=== PATIENT | male | born 1970 | race African-American/Black ===

== ENCOUNTER 2017-12-10 13:20 | Outpatient (CLI) | payer MEDICARE, MEDICAID ==
--- NOTE | 2017-12-10 14:42 | MRI ---
MRI LUMBAR SPINE WITHOUT CONTRAST: DATE: 12/10/17. COMPARISON: 09/21/16. HISTORY: Lumbar radiculopathy, bilateral lower extremity weakness. TECHNIQUE: Multiplanar, multisequence MR imaging of the lumbar spine provided without contrast. FINDINGS: The sagittal STIR imaging demonstrates degenerative edematous end plate change at the L5-S1 level, si milar when compared to prior imaging. Stable hemangioma of L5 vertebral body noted. Assuming 5 lumbar-type vertebral bodies, conus medullaris terminates at L1-2 level. T12-L1: There is mild bilateral facet hypertrophy. There is intervertebral disk space narrowing wit h no significant central canal or neural foraminal stenosis. L1-2: Moderate bilateral facet hypertrophy. Intervertebral disk height and signal intensity is withi n normal limits with no significant central canal or neural foraminal stenosis. L2-3: There is moderate bilateral facet hypertrophy. Intervertebral disk height and signal intensit y is within normal limits with no significant central canal or neural foraminal stenosis. L3-4: Bilateral facet hypertrophy. Intervertebral disk height and signal intensity is within normal limits. Mild bilateral neural foraminal stenosis. No significant central canal stenosis. L4-5: Disk space narrowing, disk desiccation, and disk bulge present. Central annular tear noted. Prominent bilateral facet hypertrophy. No significant central canal stenosis. Stable severe bilateral neural foraminal stenosis. L5-S1: Significant bilateral facet hypertrophy present. There is disk space narrowing, disk desicca tion, mild disk bulge, and vacuum disk formation. Stable mild central canal stenosis. Stable severe bilateral neural foraminal stenosis. Imaged retroperitoneal structures demonstrate no acute findings. IMPRESSION: Stable lower lumbar spine degenerative disk disease with severe neural foraminal stenosis bilaterally at L4-5 and L5-S1. POS: [facility]
== END 2017-12-10 13:21 | disposition home or self-care (01) ==
LOC: TBSIIMAG 13:20
PROVIDERS: ATTEND Neurological Surgery
DX: M51.16 Intervertebral disc disorders with radiculopathy, lumbar region (principal); M99.83 Other biomechanical lesions of lumbar region
CPT/HCPCS: 72148

== ENCOUNTER 2018-01-18 11:15 | Inpatient (IN) | payer MEDICARE, MEDICAID ==
[2018-01-18 15:11] VITALS: BMI 31.1
[2018-01-24] MEDS ORDERED: Sodium Chloride 0.9% 10 ML ONE (07:04)
[2018-01-24] MEDS ORDERED: CEFAZOLIN/Water 2 GM/20 ML SYRINGE ONE (07:42)
[2018-01-24] MEDS ORDERED: Fentanyl 100 MCG/2 ML VIAL ONE ×2 (08:54→11:51)
[2018-01-24] MEDS ORDERED: Midazolam HCl 2 mg/2 ml Vial ONE (08:54)
[2018-01-24] MEDS ORDERED: Lidocaine 2% Jelly 5 ML TUBE ONE (08:54)
[2018-01-24] MEDS ORDERED: PHENYLEPHRINE-NS 100 MCG/ML 10 ML SYRINGE ONE ×2 (10:05→13:35)
--- NOTE | 2018-01-24 11:09 | OP ---
DATE OF PROCEDURE: 01/24/2018 SURGEON: Norm Burns M.D. CARDIOLOGY RN: Liudmila Cartwright PROCEDURES: Right L4-5 and L5-S1 laminectomy, facetectomy, foraminotomy, interbody arthrodesis, intr avertebral biomechanical device, local morselized autograft, demineralized bone matrix, posterolatera l arthrodesis and pedicle screw instrumentation L4-5 and L5-S1. PROCEDURE IN DETAIL: The patient was brought to the operating room, intubated. He was rolled in the prone position on gel-filled chest rolls. Incision made exposing L4 through S1 and our level was co nfirmed by x-ray. We performed a right L4-L5 laminectomy, facetectomy, and foraminotomy and similarl y at L5-S1 decompressing neural elements at both levels. The disc was incised and debrided and compl etely removed. The bony endplates were decorticated for the purpose of arthrodesis and appropriately sized intravertebral biomechanical PEEK device was brought into the field, filled with demineralized bone matrix and local morselized autograft, and tapped into place securely at L4-5 and L5-S1. Next, pedicle screws were placed at right L4, right L5 and right S1 using lateral fluoroscopic guidance an d positioning was confirmed with rotational x-ray. Duong was secured between the screws, connected by nuts which were final tightened. The wound was then extensively irrigated and immaculate hemostasis was secured. A combination of demineralized bone matrix and local morselized autograft was laid over the left laminar and posterolateral surfaces for the purpose of arthrodesis. Vancomycin powder was applied and the wound was then closed in anatomic layers over a drain.
[2018-01-24] MEDS ORDERED: Ondansetron HCl/PF 4 MG/2 ML Vial IVP PRN (11:20)
[2018-01-24] MEDS ORDERED: Promethazine HCl 25 MG/ML VIAL IM PRN ×2 (11:20→11:59)
[2018-01-24] MEDS ORDERED: Promethazine HCl 25 MG/ML VIAL SLOW IVP PRN (11:20)
[2018-01-24] MEDS ORDERED: HYDROcodone/Acetaminophen 10/325 mg Tablet PO PRN ×4 (11:55→14:09)
[2018-01-24] MEDS ORDERED: clonazePAM 1 MG TAB PO PRN ×3 (11:58→14:09)
[2018-01-24] MEDS ORDERED: Promethazine HCl 12.5 MG SUPP PR PRN (11:59)
[2018-01-24] MEDS ORDERED: tiZANidine HCl 4 MG TAB PO PRN (11:59)
[2018-01-24] MEDS ORDERED: Mag-Al 1200 mg/1200 mg/30 ML UDCUP PO PRN (11:59)
[2018-01-24] MEDS ORDERED: diphenhydrAMINE 50 MG/ML VIAL IVP PRN (11:59)
[2018-01-24] MEDS ORDERED: Promethazine 25 MG TAB PO PRN (11:59)
[2018-01-24] MEDS ORDERED: Milk Of Magnesia 30 ML UDCUP PO PRN (11:59)
[2018-01-24] MEDS ORDERED: traMADol HCl 50 MG TAB PO PRN ×2 (11:59)
[2018-01-24] MEDS ORDERED: diphenhydrAMINE 25 MG CAP PO PRN (11:59)
[2018-01-24] MEDS ORDERED: Morphine 4 MG/ML VIAL IV PRN (12:01)
[2018-01-24] MEDS ORDERED: Ondansetron PF 4 MG/2 ML Vial IM PRN (12:02)
[2018-01-24] MEDS: Sodium Chloride 0.9% 1,000 ML IV SCH (12:30)
[2018-01-24] MEDS ORDERED: Lidocaine 1% PF 5 ML VIAL ONE (13:35)
[2018-01-24] MEDS ORDERED: Glycopyrrolate 0.2 MG/ML 5 ML SYRINGE ONE (13:35)
[2018-01-24] MEDS ORDERED: PROPOFOL 200 MG/20 ML VIAL ONE (13:35)
[2018-01-24] MEDS ORDERED: ePHEDrine/0.9% NaCl/PF SYRINGE 50 mg/10 ml ONE (13:35)
[2018-01-24] MEDS ORDERED: Dexamethasone 20 MG/5 ML VIAL ONE (13:35)
[2018-01-24] MEDS ORDERED: Ondansetron PF 4 MG/2 ML Vial ONE (13:35)
[2018-01-24] MEDS ORDERED: hydrALAZINE 20 MG/ML VIAL SLOW IVP PRN (14:36)
[2018-01-24] MEDS ORDERED: Loratadine 10 MG TAB PO PRN (14:36)
[2018-01-24] MEDS ORDERED: Senokot 8.6 MG TAB PO PRN (14:36)
[2018-01-24] MEDS ORDERED: Famotidine 20 MG TAB PO PRN (14:36)
[2018-01-24] MEDS ORDERED: Eucerin (Mineral Oil/Petrolatum,White) 30 gm Jar TOP PRN (14:36)
[2018-01-24] MEDS ORDERED: Diabetic Tussin 200 MG/10 ML UDCUP PO PRN (14:36)
[2018-01-24] MEDS ORDERED: Artificial Tears 18 DROP/0.9 ML EA EYE PRN (14:36)
[2018-01-24] MEDS ORDERED: Acetaminophen 325 MG TAB PO PRN (14:36)
[2018-01-24] MEDS ORDERED: Ondansetron ODT 4 MG TAB PO PRN (14:36)
[2018-01-24] MEDS ORDERED: Loperamide HCl 2 MG CAP PO PRN (14:36)
[2018-01-24] MEDS ORDERED: Bisacodyl 10 MG SUPP PR PRN (14:36)
[2018-01-24] MEDS ORDERED: Chloraseptic Spray 180 ml Bottle PO PRN (14:36)
[2018-01-24] MEDS ORDERED: Temazepam 15 MG CAP PO PRN (14:36)
[2018-01-24] MEDS ORDERED: Sodium Chloride 0.65% Nasal 44 ML BOT EA NARE PRN (14:36)
--- NOTE | 2018-01-24 15:45 | CON ---
DATE OF CONSULTATION: 01/24/2018 PRIMARY CARE PHYSICIAN: Dr. Emily Grant. PRIMARY ATTENDING: Norm Burns M.D. REASON FOR ADMISSION: Lumbar diskectomy with fusion. REASON FOR CONSULT: Medical comanagement. HISTORY OF PRESENT ILLNESS: A 47-year-old -[place] male who has history of hemorrhagic stroke, required craniotomy, subsequently cranioplasty and he has residual hemiparesis and spasticity on the left side and he has left- sided hemineglect. For the last several months, patient was experiencing radicular pain in his left leg. The patient also had several epidural steroid injections without any significant relief. Patient also had nerve block, that also not subsided his pain completely. Patient had recently MRI of lumbar spine which showed degenerative disk disease in lumbar spine with severe neural foraminal stenosis at L4-L5 and L5-S1. Today, patient underwent right L4-L5, L5 -S1 laminectomy, fasciectomy, foraminotomy and postoperatively at joint floor, we were consulted for medical comanagement. Patient denies any chest pain, palpitation, shortness of breath. He has currently back pain after surgery. He denies any UTI symptoms. He denies any constipation, diarrhea, melena or hematochezia. PAST MEDICAL HISTORY: Paroxysmal atrial fibrillation, hypertension, chronic diastolic heart failure, history of hemorrhagic stroke with residual left-sided hemiplegia, hemineglect, diabetes type 2 which is diet controlled. PAST PSYCHIATRIC HISTORY: Anxiety and depression. PAST SURGICAL HISTORY: Craniotomy, cranioplasty, tracheostomy, hernia repair, lap banding. CURRENT HOME MEDICATIONS: Amlodipine 2.5 mg p.o. at bedtime, aspirin 81 mg p.o. daily, Coreg 25 mg p.o. b.i.d., vitamin D3 2000 units p.o. daily, clonazepam 1 or 2 tablets p.o. q.6 hourly p.r.n., Prozac 80 mg p.o. at bedtime, Lasix 20 mg p.o. daily, gabapentin 300 mg p.o. b.i.d., [place] 1 or 2 tablets q.6 hourly p.r.n., Imdur 60 mg p.o. b.i.d., lisinopril 40 mg p.o. b.i.d., fish oil 1 capsule p.o. daily, potassium chloride 20 mEq p.o. b.i.d., pravastatin 80 mg p.o. at bedtime. ALLERGIES: CYMBALTA. FAMILY HISTORY: Both parents . Father had diabetes and mother had bone cancer. SOCIAL HISTORY: Patient smokes cigar daily basis. He drinks alcohol occasionally. He is on disability. He is single. REVIEW OF SYSTEMS: The following complete review of systems was negative, unless otherwise mentioned in the HPI or below: Constitutional: Weight loss or gain, ability to conduct usual activities. Skin: Rash, itching. Eyes: Double vision, pain. ENT/Mouth: Nose bleeding, neck stiffness, pain, tenderness. Cardiovascular: Palpitations, dyspnea on exertion, orthopnea. Respiratory: Shortness of breath, wheezing, cough, hemoptysis, fever or night sweats. Gastrointestinal: Poor appetite, abdominal pain, heartburn, nausea, vomiting, constipation, or diarrhea. Genitourinary: Urgency, frequency, dysuria, nocturia. Musculoskeletal: Pain, swelling. Neurologic/Psychiatric: Anxiety, depression. Allergy/Immunologic: Skin rash, bleeding tendency. Please see my HPI for pertinent positive and negative. All other review of systems reviewed and negative except as mentioned in the HPI. PHYSICAL EXAMINATION: VITAL SIGNS: Currently, blood pressure 127/64, pulse 82, respiratory rate 18, temperature 97.6, saturation 100% on room air, and weight 230 pounds. GENERAL: Patient is currently alert, awake, no obvious acute distress. HEAD: The patient does have scar of craniotomy and cranioplasty. EYES: Pupils round and reactive to light. Extraocular muscle intact. No nystagmus. He has hemineglect on the left side. HEENT: Oropharynx within normal limits. Moist mucous membranes. No oral lesion. No pharyngeal erythema, no exudate. NECK: Supple, no JVD, no thyromegaly, no carotid bruit. LUNGS: Clear to auscultation without any rhonchi or rales. CARDIAC: S1 and S2 regular without any significant murmur. ABDOMEN: Soft, obesity present. Bowel sounds present, nontender, nondistended. No organomegaly, no mass, no suprapubic tenderness. BACK: The patient does have surgical site covered with dressing. NEUROLOGIC: The patient does have residual weakness on the left side with hemineglect, but no new focal neurological symptoms noted. PSYCHIATRIC: Normal affect. IMAGING DATA AND SIGNIFICANT LABORATORY DATA: 1. Lumbar spine MRI showed degenerative spine disease with severe neural foraminal stenosis bilaterally at L4-L5 and L5-S1. 2. CBC: WBC 4.4, hemoglobin 16.5, platelet 140. 3. BMP: Sodium 137, potassium 3.5, chloride 106, carbon dioxide 25, anion gap 10, BUN 16, creatinine 1.44, glucose 79, and calcium 9.1. 4. EKG reported as right bundle branch block pattern, left axis deviation, atrial fibrillation. ASSESSMENT AND PLAN/IMPRESSION: 1. Status post right L4-L5, L5-S1 laminectomy, fasciectomy, and foraminectomy. Management will defer to primary team. Patient will need physical therapy, occupational therapy, and possible rehab evaluation, pain control with different pain medication. 2. Paroxysmal atrial fibrillation, not a candidate for long-term chronic anticoagulation therapy because of history of hemorrhagic stroke. Currently rate controlled and in sinus rhythm. 3. Hypertension, currently well controlled. We will resume amlodipine 2.5 mg p.o. at bedtime, Coreg 25 mg p.o. b.i.d., Imdur 60 mg p.o. b.i.d., lisinopril 40 mg p.o. b.i.d., Lasix 20 mg p.o. daily. We will hold his blood pressure medication if blood pressure is less than 130 systolic. 4. Chronic diastolic heart failure, currently euvolemic. Continue Lasix, lisinopril, Coreg, Imdur, lisinopril as well as amlodipine as per home dosage as mentioned above. 5. Lumbar stenosis, status post laminectomy and foraminectomy. 6. Dyslipidemia. Continue pravastatin 80 mg p.o. at bedtime. 7. Anxiety and depression. Continue clonazepam one tablet q.6 hourly p.r.n. and fluoxetine 80 mg p.o. at bedtime. 8. Obesity with body mass index 31. Dietary education given. 9. Deep venous thrombosis prophylaxis. Sequential compression device boots. No Lovenox because of back surgery. 10. Gastrointestinal prophylaxis, Pepcid 20 mg p.o. b.i.d. 11. Code status: The patient is FULL CODE. The patient is making decision by himself. Disposition plan based on clinical course. Thank you for consult. We will follow up with you while in hospital. [place]
[2018-01-24] MEDS: CEFAZOLIN/Water 2 GM/20 ML SYRINGE SLOW IVP SCH (16:45)
[2018-01-24] MEDS: Potassium Chloride 20 MEQ TAB PO SCH ×2 (16:46→21:48)
[2018-01-24] MEDS: HYDROcodone/Acetaminophen 10/325 mg Tablet PO PRN (19:34)
[2018-01-24] MEDS ORDERED: Non-Formulary Item 1 EACH (Amlodipine Besylate [Amlodipine Besylate] 2.5 MG) PO SCH (21:00)
[2018-01-24] MEDS ORDERED: Non-Formulary Item 1 EACH (Lisinopril [Lisinopril] 1 TAB) PO SCH (21:00)
[2018-01-24] MEDS ORDERED: Atorvastatin Calcium 20 MG TAB PO SCH (21:00)
[2018-01-24] MEDS ORDERED: FLUOXETINE HCL 80 MG PO SCH (21:00)
[2018-01-24] MEDS ORDERED: Gabapentin 300 MG CAP PO SCH (21:00)
[2018-01-24] MEDS: Amlodipine 5 MG TAB PO SCH (21:46)
[2018-01-24] MEDS: Atorvastatin Calcium 20 MG TAB PO SCH (21:46)
[2018-01-24] MEDS: Carvedilol 25 MG TAB PO SCH ×2 (21:47)
[2018-01-24] MEDS: FLUoxetine HCl 20 MG CAP PO SCH (21:47)
[2018-01-24] MEDS: Gabapentin 300 MG CAP PO SCH (21:47)
[2018-01-24] MEDS: Lisinopril 20 MG TAB PO SCH (21:48)
[2018-01-25] MEDS: CEFAZOLIN/Water 2 GM/20 ML SYRINGE SLOW IVP SCH
[2018-01-25] MEDS: Sodium Chloride 0.9% 1,000 ML IV SCH ×2 (02:30→17:23)
--- NOTE | 2018-01-25 06:45 | PRG ---
DATE OF SERVICE: 01/25/2018 The patient is a 47-year-old male known to us for history of head injury with a cran iotomy with a later cranioplasty who has a left-sided hemiplegia and is wheelchair bound, who was see n in the office for progressively worsening low back and left hip pain. His MRI showed severe L4-L5 and L5-S1 degenerative changes and therefore, he underwent L4-S1 diskectomy and fusion on 01/24/2018. There were no complications during his surgery. KAREN drain was placed intraoperatively which had 70 mL of output overnight. This was removed the following morning and his IV antibiotics were discontin ued. His postoperative course has been complicated by some urinary retention. Overnight, the patien t was unable to urinate and a bladder scan revealed greater than 300 mL, therefore, I&O cath x1 was d one. I am assessing the patient this morning, he is still not able to urinate on his own. He will b e given 0.4 mg of Flomax this morning and I have ordered additional I&O straight cath for bladder sca n greater than 300. Otherwise, he reports he is feeling much better. He has decreased pain in the l ow back and left hip region. He has no neurologic changes and continues to be at his baseline as far as motor function. We will continue to monitor his urinary retention issues. If improved, may be a ble to send the patient home later today or tomorrow.
[2018-01-25] MEDS ORDERED: Fish Oil 1,000 MG CAP PO SCH (09:00)
[2018-01-25] MEDS: HYDROcodone/Acetaminophen 10/325 mg Tablet PO PRN (09:08)
[2018-01-25] MEDS: Potassium Chloride 20 MEQ TAB PO SCH ×4 (09:08→21:03)
[2018-01-25] MEDS: Gabapentin 300 MG CAP PO SCH ×2 (09:09→21:00)
[2018-01-25] MEDS: Lisinopril 20 MG TAB PO SCH ×2 (09:09→21:02)
[2018-01-25] MEDS: Fish Oil 1,000 MG CAP PO SCH (09:10)
[2018-01-25] MEDS: Tamsulosin HCl 0.4 MG CAP PO SCH (09:10)
[2018-01-25] MEDS: Carvedilol 25 MG TAB PO SCH ×4 (09:10→21:04)
[2018-01-25] MEDS: Furosemide 20 MG TAB PO SCH ×2 (09:10→09:17)
--- NOTE | 2018-01-25 16:41 | PDOC.PN ---
- Subjective Encounter Start Date: 01/25/18 Encounter Start Time: 16:40 Mr. Osman was seen today in follow-up of medical management post lumbar disckectomy and fusion. He does not have any complaints. - Objective Resuscitation Status: Resuscitation Status FULL:Full Resuscitation MAR Reviewed: Yes Vital Signs & Weight: Vital Signs (12 hours) Temp Pulse Resp BP BP Pulse Ox 01/25/18 16:27 107 H 95 01/25/18 15:05 98.3 F 18 132/90 95 01/25/18 13:56 98 137/84 01/25/18 11:39 98 F 113 H 16 138/104 H 97 01/25/18 09:09 151/90 H 01/25/18 08:15 97.9 F 79 16 151/90 H 97 Weight Weight 230 lb I&O: 01/24/18 01/25/18 01/26/18 06:59 06:59 06:59 Intake Total 1800 Output Total 1070 Balance 730 Phys Exam - Physical Examination HEENT: PERRLA Respiratory: no wheezing, no rales, no rhonchi, clear to auscultation bilateral Cardiovascular: irregular Gastrointestinal: soft, non-tender, positive bowel sounds Musculoskeletal: no edema Dx/Plan (1) Atrial fibrillation Code(s): I48.91 - UNSPECIFIED ATRIAL FIBRILLATION Status: Acute (2) Hypertension Code(s): I10 - ESSENTIAL (PRIMARY) HYPERTENSION Status: Acute (3) Lumbar disc disease Code(s): M51.9 - UNSP THORACIC, THORACOLUM AND LUMBOSACR INTVRT DISC DISORDER Status: Acute - Plan * AFIB with RVR- his heart rate was a bit elevated earlier, but has improved * HTN- blood pressure is also better this afternoon as compared to this morning - he attributes this to better pain control * Transient Urinary retention- He states this is better, and has just voided when came to see him * Disposition as per Neurosurgery.
[2018-01-25] MEDS: Amlodipine 5 MG TAB PO SCH (21:00)
[2018-01-25] MEDS: Atorvastatin Calcium 20 MG TAB PO SCH (21:04)
[2018-01-25] MEDS: FLUoxetine HCl 20 MG CAP PO SCH (21:04)
[2018-01-26] MEDS: HYDROcodone/Acetaminophen 10/325 mg Tablet PO PRN ×2 (03:39→10:01)
[2018-01-26] MEDS: Sodium Chloride 0.9% 1,000 ML IV SCH (03:50)
[2018-01-26] MEDS: Potassium Chloride 20 MEQ TAB PO SCH ×2 (08:45→08:47)
[2018-01-26] MEDS: Fish Oil 1,000 MG CAP PO SCH (08:45)
[2018-01-26] MEDS: Lisinopril 20 MG TAB PO SCH (08:46)
[2018-01-26] MEDS: Furosemide 20 MG TAB PO SCH ×2 (08:46→08:47)
[2018-01-26] MEDS: Carvedilol 25 MG TAB PO SCH ×2 (08:46→08:47)
[2018-01-26] MEDS: Gabapentin 300 MG CAP PO SCH (08:47)
[2018-01-26] MEDS: Tamsulosin HCl 0.4 MG CAP PO SCH (08:47)
[2018-01-26 08:48] VITALS: BP 148/101
[2018-01-26 08:53] VITALS: TEMP 98.8
== END 2018-01-26 10:55 | disposition home or self-care (01) | DRG 460 ==
LOC: SURG A 01-24 06:54
PROVIDERS: ADMIT Neurological Surgery; ATTEND Neurological Surgery
PROC: 0SG30AJ Fusion of Lumbosacral Joint with Interbody Fusion Device, Posterior Approach, Anterior Column, Open Approach (ICD-10-PCS; principal; 2018-01-24)
PROC: 01NB0ZZ Release Lumbar Nerve, Open Approach (ICD-10-PCS; principal; 2018-01-24)
PROC: 0ST40ZZ Resection of Lumbosacral Disc, Open Approach (ICD-10-PCS; principal; 2018-01-24)
PROC: 0SG00AJ Fusion of Lumbar Vertebral Joint with Interbody Fusion Device, Posterior Approach, Anterior Column, Open Approach (ICD-10-PCS; principal; 2018-01-24)
DX: M51.16 Intervertebral disc disorders with radiculopathy, lumbar region (principal); G81.94 Hemiplegia, unspecified affecting left nondominant side; I50.32 Chronic diastolic (congestive) heart failure; M51.17 Intervertebral disc disorders with radiculopathy, lumbosacral region; M48.07 Spinal stenosis, lumbosacral region; M48.061 Spinal stenosis, lumbar region without neurogenic claudication; I11.0 Hypertensive heart disease with heart failure; E78.5 Hyperlipidemia, unspecified; I48.0 Paroxysmal atrial fibrillation; E11.9 Type 2 diabetes mellitus without complications; R33.9 Retention of urine, unspecified; E66.9 Obesity, unspecified; F32.9 Major depressive disorder, single episode, unspecified; F41.9 Anxiety disorder, unspecified; F17.290 Nicotine dependence, other tobacco product, uncomplicated; Z68.31 Body mass index [BMI] 31.0-31.9, adult; Z88.8 Allergy status to other drugs, medicaments and biological substances; Z79.899 Other long term (current) drug therapy; Z80.8 Family history of malignant neoplasm of other organs or systems; Z83.3 Family history of diabetes mellitus; Z79.82 Long term (current) use of aspirin
CPT/HCPCS: 76001; C1713; C1768; G8978-GP-CM; G8979-GP-CK; J1100; J2001; J2250; J2270; J2405; J2704; J3010; J3370; J3490

== ENCOUNTER 2018-01-18 14:49 | Outpatient (CLI) | payer MEDICARE, MEDICAID ==
[2018-01-18 16:15] LABS: Hemoglobin 16.5 g/dL (14.0-18.0); Mean Corpuscular HGB CONC 33.7 g/dL (32.0-36.0); Mean Corpuscular Hemoglobin 31.7 pg (27.0-31.0); Mean Platelet Volume 7.5 fL (7.4-10.4); Platelet Count 140 thou/uL (130-400); Red Blood Cell (RBC) Count 5.21 mill/uL (4.70-6.10); White Blood Cell (WBC) Count 4.4 thou/uL (4.8-10.8)
[2018-01-18 16:38] LABS: Anion Gap 10 mmol/L (10-20); BUN (Urea Nitrogen) 16 mg/dL (8.9-20.6); Calc. Creatinine Clearance 0 mL/min (70-130); Calcium 9.1 mg/dL (7.8-10.44); Carbon Dioxide 25 mmol/L (22-29); Chloride 106 mmol/L (98-107); Estimated GFR-MDRD 63; Glucose 79 mg/dL (70-105); Potassium 3.5 mmol/L (3.5-5.1); Sodium 137 mmol/L (136-145)
== END 2018-01-18 14:50 | disposition home or self-care (01) ==
LOC: LABBT 14:49
PROVIDERS: ATTEND Neurological Surgery
DX: Z01.818 Encounter for other preprocedural examination (principal); M54.16 Radiculopathy, lumbar region
CPT/HCPCS: 80048; 85027; 93005; 93010

== ENCOUNTER 2018-02-09 11:03 | Outpatient (CLI) | payer MEDICARE, MEDICAID ==
--- NOTE | 2018-02-09 12:03 | RAD ---
LUMBAR SPINE 2 VIEWS: Date: 02/09/18 HISTORY: Lumbar radiculopathy, status post surgery. FINDINGS/IMPRESSION: There are postop changes of right-sided posterior spinal fusion with pedicle screws at L4, L5, and S1 levels. There are intradiscal prostheses at L4-5 and L5-S1 levels. Degenerative changes in the lower lumbar spine are present. No acute fracture or subluxation is seen. Metallic hardware is intact. POS: [facility]
== END 2018-02-09 11:04 | disposition home or self-care (01) ==
LOC: TBSIIMAG 11:03
PROVIDERS: ATTEND Neurological Surgery
DX: M47.26 Other spondylosis with radiculopathy, lumbar region (principal)
CPT/HCPCS: 72100

== ENCOUNTER 2018-03-29 13:00 | Outpatient (CLI) | payer MEDICARE, MEDICAID ==
--- NOTE | 2018-03-29 15:07 | RAD ---
LUMBAR SPINE 2 VIEWS: Date: 03/29/18 COMPARISON: 02/09/18. HISTORY: Lumbar disc degeneration. FINDINGS: There is a left-sided gastric lap band, incompletely evaluated. There is laminectomy defect at L4 and L5. Disc prosthesis at L4-L5 and L5-S1. Right-sided unilateral transpedicular screw at L3, L4, and L5. Vertebral body height is maintained. No fracture. 4.5 mm retr olisthesis of L4 upon L5. Right hip prosthesis is noted. IMPRESSION: Uncomplicated lumbar fusion as above. There is Grade I retrolisthesis of L4 upon L5. POS: [facility]
== END 2018-03-29 13:01 | disposition home or self-care (01) ==
LOC: TBSIIMAG 13:00
PROVIDERS: ATTEND Neurological Surgery
DX: M51.36 Other intervertebral disc degeneration, lumbar region (principal); M43.16 Spondylolisthesis, lumbar region; Z98.1 Arthrodesis status
CPT/HCPCS: 72100

== ENCOUNTER 2018-06-29 12:58 | Outpatient (CLI) | payer MEDICARE, MEDICAID ==
--- NOTE | 2018-06-29 14:19 | RAD ---
LUMBAR SPINE RADIOGRAPHS: Date: 06-29-18 Provided Clinical History: Lumbar radiculopathy. FINDINGS: Comparison is made with a study dated 03-29-18. Lumbar alignment appears normal on the current study. Vertebral body heights appear preserved. Cortic al screws and vertical interconnecting rods right of midline at L4, L5, and S1 are again noted with i ntervertebral disc device again seen at L4-5 and L5-S1. Vertebral body heights are preserved. Visuali zed pedicles appear intact. Changes of gastric banding are partially visualized. Changes of left hip arthroplasty are partially visualized. IMPRESSION: Stable post-operative change involving the lower lumbar spine. POS: [facility]
== END 2018-06-29 12:59 | disposition home or self-care (01) ==
LOC: TBSIIMAG 12:58
PROVIDERS: ATTEND Neurological Surgery
DX: M54.16 Radiculopathy, lumbar region (principal); Z96.642 Presence of left artificial hip joint; Z98.890 Other specified postprocedural states
CPT/HCPCS: 72100